=== PATIENT | male | born 1955 | race African-American/Black ===

== ENCOUNTER 2020-03-03 08:21 | Emergency (ER) | payer MEDICARE, MEDICAID ==
[~2020-03-03] VITALS: Ht 170.2 cm; Wt 70.0 kg
--- NOTE | 2020-03-03 08:48 | NUR ---
FIRST CONTACT WITH PT. PT STATED "I'M HAVING SUICIDAL & HOMOCIDAL THOUGHTS, I'M REALLY DEPRESSED, PLAN TO OD/HURT PEOPLE WHO HAVE BEEN HURTING ME", HX SA (OD) ABOUT 6 MONTHS AGO & BIPOLAR, STOPPED TAKING PSYCH MEDS LAST WK. PT'S AOX4. RESPS EVEN AND UNLABORED. PA AT BEDSIDE TO EVALUATE AT THIS TIME.
--- NOTE | 2020-03-03 08:49 | NUR ---
PT IS NOT ABLE TO PROVIDE URINE SAMPLE AT THIS TIME. PT STATED "I JUST PEED RIGHT BEFORE"
--- NOTE | 2020-03-03 08:51 | NUR ---
DIET TRAY ORDERED AT THIS TIME.
--- NOTE | 2020-03-03 08:56 | NUR ---
HOSPITAL SOCKS GIVEN PER REQUEST. SITTER REQUESTING AT THIS TIME.
[2020-03-03 09:12] LABS: ANION GAP 7 mmol/L (5-15); CALCIUM 9.2 mg/dL (8.5-10.1); CHLORIDE 101 mmol/L (98-107)
[2020-03-03 09:15] LABS: ALANINE AMINOTRANSFERASE 31 U/L (12-78); ALKALINE PHOSPHATASE 109 U/L (45-117); BILIRUBIN,TOTAL 1.7 mg/dL (0.2-1.0); CREATININE 0.91 mg/dL (0.7-1.3); TOTAL PROTEIN 8.3 g/dL (6.4-8.2)
[2020-03-03 09:18] LABS: MEAN CORPUSCULAR HEMOGLOBIN 30.5 pg (27.5-34.5); MEAN CORPUSCULAR HGB CONC 32.9 g/dL (33.2-36.2); MEAN PLATELET VOLUME 8.2 fL (7.4-10.4); PLATELET COUNT 269 x10^3/uL (130-400); RED BLOOD COUNT 4.66 x10^6/uL (4.38-5.82)
--- NOTE | 2020-03-03 09:19 | NUR ---
ONE BELONGING BAG PUT INTO THE LOCKER.
[2020-03-03 09:21] LABS: SALICYLATE LEVEL < 1.7 mg/dL (2.8-20.0)
--- NOTE | 2020-03-03 09:25 | NUR ---
DIET TRAY PROVIDED AT THIS TIME. URINE CUP IN ROOM
[2020-03-03 09:45] LABS: BASOPHILS # (AUTO) 0.02 x10^3/uL (0-0.1); BASOPHILS % (AUTO) 0 % (0-1); EOSINOPHILS # (AUTO) 0.25 x10^3/uL (0-0.4); EOSINOPHILS % (AUTO) 4 % (1-7); LYMPHOCYTES % (AUTO) 22 % (22-44); MD SCAN; MONOCYTES # (AUTO) 1.06 x10^3/uL (0.2-0.8); MONOCYTES % (AUTO) 18 % (2-9); NEUTROPHILS # (AUTO) 3.32 x10^3/uL (1.8-6.8); NEUTROPHILS % (AUTO) 56 % (42-75)
--- NOTE | 2020-03-03 10:17 | NUR ---
PT AMB TO BR AND BACK TO ROOM WITH STEADY GAIT. PT PROVIDED URINE SAMPLE AND UA SENT.
[2020-03-03 10:35] LABS: AMPHETAMINE SCREEN, URINE Positive (Negative); BARBITURATE SCREEN, URINE Negative (Negative); BENZODIAZEPINE SCREEN, URINE Negative (Negative); CANNABINOID SCREEN, URINE Negative (Negative); COCAINE SCREEN, URINE Negative (Negative); METHADONE SCREEN, URINE Negative (Negative); OPIATE SCREEN, URINE Negative (Negative)
--- NOTE | 2020-03-03 10:57 | NUR ---
AWAITING LINER CHECKER PSYCH EVAL AT THIS TIME
--- NOTE | 2020-03-03 11:03 | NUR ---
DIET TRAY ORDERED AT THIS TIME.
--- NOTE | 2020-03-03 11:45 | NUR ---
Harry gray in ED - 03/03/20 at 1145 by MARS RECREATION DIRECTOR PSYCH AT BEDSIDE TO RE-EVALUATE AT THIS TIME.
--- NOTE | 2020-03-03 11:46 | NUR ---
PUBLIC HEALTH WORKER PSYCH AT BEDSIDE TO EVALUATE AT THIS TIME.
--- NOTE | 2020-03-03 12:20 | NUR ---
MEAL TRAY PROVIDED AT THIS TIME.
--- NOTE | 2020-03-03 12:20 | NUR ---
ABDIEL REQUESTING AGAIN AT THIS TIME D/T LEGAL HOLD BY ELECTRICAL TEST TECHNICIAN PSYCH.
--- NOTE | 2020-03-03 12:28 | NUR ---
SITTER IS HERE. SITTER MONITORING FROM [facility] SAFETY.
--- NOTE | 2020-03-03 13:05 | NUR ---
TASK RN NOTE: PT LAYING ON SIDE IN BED, LIGHTS DIMMED FOR PT COMFORT. SITTER OUTSIDE OF ROOM FOR DIRECT OBSERVATION AND Q15 MIN SAFETY CHECKS.
--- NOTE | 2020-03-03 13:10 | NUR ---
TASK RN NOTE: REQUEST SENT TO PHARMACY FOR PO MEDS ON EMAR.
[2020-03-03] MEDS ORDERED: LORazepam 0.5MG TABLET ONE (13:18)
[2020-03-03] MEDS: DULOXETINE 30 MG CAPSULE.DR PO SCH (13:30)
[2020-03-03] MEDS: LURASIDONE 20 MG TABLET PO SCH (13:30)
[2020-03-03] MEDS ORDERED: LORazepam 0.5MG TABLET PO ONE (13:30)
--- NOTE | 2020-03-03 13:41 | NUR ---
PT MEDICATED PER EMAR. PT TOLERATED WELL. PT'S AOX4. RESPS EVEN AND UNLABORED. SITTER MONITORING FROM [facility] FOR SAFETY.
--- NOTE | 2020-03-03 14:40 | NUR ---
PT MOVED TO ROOM 2 WITH STEADY GAIT. SNACKS PROVIDED PER REQUEST AT THIS TIME.
--- NOTE | 2020-03-03 15:21 | NUR ---
DENIED BY [facility]. FAXED TO [facility] [place], [facility] AND [facility]
--- NOTE | 2020-03-03 15:40 | NUR ---
PT RESTING IN BED. RESPS EVEN AND UNLABORED. SITTER MONITORING FROM [facility] FOR SAFETY. ROOM SECURE.
--- NOTE | 2020-03-03 16:36 | NUR ---
PT RESTING IN BED. RESPS EVEN AND UNLABORED. SITTER MONITORING FROM [facility] FOR SAFETY. ROOM SECURE.
--- NOTE | 2020-03-03 17:04 | NUR ---
DIET TRAY ORDERED AT THIS TIME.
--- NOTE | 2020-03-03 18:03 | NUR ---
DIET TRAY PROVIDED AT THIS TIME.
--- NOTE | 2020-03-03 18:53 | NUR ---
REPORT GIVEN TO NILSA PATEL.
--- NOTE | 2020-03-03 18:55 | NUR ---
REPORT FROM KINGSTON PATEL, SAFETY ROOM PRECAUTIONS IN PLACE, SITTER AT DOOR FOR SAFETY MONITORING.
--- NOTE | 2020-03-03 19:40 | NUR ---
PT UP TO BATHROOM, SITTER CONTINUES TO MONITOR FOR SAFETY.
--- NOTE | 2020-03-03 20:31 | NUR ---
PT RESTING ON GURNEY WATCHING TV. SITTER AT DOOR FOR SAFETY WATCH.
--- NOTE | 2020-03-03 21:24 | NUR ---
SLEEPING INTERMITTENTLY, SAFETY PRECAUTIONS IN PLACE. SITTER AT DOOR FOR SAFETY.
--- NOTE | 2020-03-04 00:09 | NUR ---
PT SLEEPING IN NO ACUTE DISTRESS, EVEN AND UNLABORED RESPIRATIONS. SAFETY PRECAUTIONS IN PLACE. SITTER AT DOOR ENTRY.
--- NOTE | 2020-03-04 01:56 | NUR ---
PT REQUESTING MULTIPLE SNACKS, RN EDUCATED PT ON NUTRITION, PROVIDED APPLE JUICE TO PT. SITTER CONTINUES TO MONITOR FOR SAFETY.
--- NOTE | 2020-03-04 03:06 | NUR ---
PT IS MORE RESTLESS, REQUESTING ATIVAN. WILL UPDATE ERP.
[2020-03-04] MEDS ORDERED: LORazepam 0.5MG TABLET ONE (03:09)
[2020-03-04] MEDS ORDERED: LORazepam 0.5MG TABLET PO ONE (03:30)
--- NOTE | 2020-03-04 04:08 | NUR ---
PT AWAKE WATCHING TV, REQUESTING MULTIPLE SNACKS.
--- NOTE | 2020-03-04 06:51 | NUR ---
report received from huong perkins.
--- NOTE | 2020-03-04 06:51 | NUR ---
REPORT GIVEN TO KINGSTON PATEL.
--- NOTE | 2020-03-04 08:02 | NUR ---
diet tray provided at this time.
--- NOTE | 2020-03-04 08:10 | NUR ---
pt c/o diet tray. pt stated "it's cold." this rn ordered one more diet tray at this time.
--- NOTE | 2020-03-04 08:44 | NUR ---
medication ordered from pharmacy at this time.
--- NOTE | 2020-03-04 08:45 | NUR ---
new diet tray provided at this time.
--- NOTE | 2020-03-04 08:56 | NUR ---
REPORT FROM KINGSTON PATEL.
[2020-03-04] MEDS: LURASIDONE 20 MG TABLET PO SCH (09:00)
[2020-03-04] MEDS: DULOXETINE 30 MG CAPSULE.DR PO SCH (09:00)
--- NOTE | 2020-03-04 09:01 | NUR ---
report given to roque perkins.
--- NOTE | 2020-03-04 09:18 | NUR ---
PT C/O SI/HI. NO PHYSICAL COMPLAINTS. PHYSICAL ASSESSMENT UNREMARKABLE. GIVEN WATER. SITTER IN PLACE. COOPERATIVE.
[2020-03-04 09:19] VITALS: BP 115/73
--- NOTE | 2020-03-04 11:03 | NUR ---
pt yelling at staff bc he wants ice cream. diet tray/ice cream ordered. as
[2020-03-04] MEDS ORDERED: LORazepam 1MG TABLET PO PRN (11:30)
--- NOTE | 2020-03-04 11:33 | NUR ---
PT IRATE D/T LACK OF ICE CREAM. CALLED KITCHEN LEFT MESSAGE.
--- NOTE | 2020-03-04 11:48 | NUR ---
pt told senior staff psychologist he just needed a safe place to stay and is not suicidal. tbdc. given belongings and fresh socks. gait steady to shower. as
--- NOTE | 2020-03-04 12:12 | NUR ---
pt refused tray and meds. discharged w/ all belongings. to dc window. given [facility]/psych list. as
== END 2020-03-04 12:14 | disposition home or self-care (01) ==
LOC: ED 09:18
DX: R45.851 Suicidal ideations (principal); F32.9 Major depressive disorder, single episode, unspecified; J44.9 Chronic obstructive pulmonary disease, unspecified; Z85.038 Personal history of other malignant neoplasm of large intestine
CPT/HCPCS: 36415; 80053; 80307; 85025; 99284

== ENCOUNTER 2020-03-05 03:39 | Emergency (ER) | payer MEDICARE, MEDICAID ==
[~2020-03-05] VITALS: Ht 172.7 cm; Wt 72.0 kg
[2020-03-05] MEDS ORDERED: SODIUM CHLORIDE FLUSH 10ML SYR IVF ONE (04:00)
--- NOTE | 2020-03-05 04:02 | NUR ---
PT STATES HE HAS STERNAL CHEST PAIN, CALLED [facility], AND ALSO CLAIMS SI. PT PLAN IS TO OVERDOSE ON PAIN MEDS, THAT HE DOES NOT HAVE. PT IN A ROOM WITHIN DIRECT LINE OF SITE OF NURSES STATION. NO ACUTE DISRESS.
[2020-03-05 04:41] LABS: BASOPHILS # (AUTO) 0.03 x10^3/uL (0-0.1); BASOPHILS % (AUTO) 0 % (0-1); EOSINOPHILS % (AUTO) 3 % (1-7); LYMPHOCYTES # (AUTO) 2.05 x10^3/uL (1-3.4); LYMPHOCYTES % (AUTO) 26 % (22-44); MD NO; MEAN CORPUSCULAR HEMOGLOBIN 30.6 pg (27.5-34.5); MEAN CORPUSCULAR HGB CONC 32.5 g/dL (33.2-36.2); MEAN PLATELET VOLUME 8.5 fL (7.4-10.4); MONOCYTES # (AUTO) 0.74 x10^3/uL (0.2-0.8); MONOCYTES % (AUTO) 9 % (2-9); NEUTROPHILS # (AUTO) 4.89 x10^3/uL (1.8-6.8); NEUTROPHILS % (AUTO) 62 % (42-75); PLATELET COUNT 256 x10^3/uL (130-400); RED BLOOD COUNT 4.51 x10^6/uL (4.38-5.82); RED CELL DISTRIBUTION WIDTH 14.6 % (9.4-14.8)
[2020-03-05 04:43] LABS: ALBUMIN 4.1 g/dL (3.4-5.0); ANION GAP 5 mmol/L (5-15); CALCIUM 9.3 mg/dL (8.5-10.1); CHLORIDE 102 mmol/L (98-107)
[2020-03-05 04:47] LABS: ALANINE AMINOTRANSFERASE 32 U/L (12-78); CREATININE 0.93 mg/dL (0.7-1.3); TOTAL PROTEIN 8.6 g/dL (6.4-8.2); TROPONIN I < 0.015 ng/mL (0.000-0.045)
[2020-03-05 04:50] LABS: AMPHETAMINE SCREEN, URINE Positive (Negative); BARBITURATE SCREEN, URINE Negative (Negative); BENZODIAZEPINE SCREEN, URINE Negative (Negative); CANNABINOID SCREEN, URINE Negative (Negative); COCAINE SCREEN, URINE Negative (Negative); METHADONE SCREEN, URINE Negative (Negative); OPIATE SCREEN, URINE Negative (Negative)
[2020-03-05 04:52] LABS: ALKALINE PHOSPHATASE 111 U/L (45-117); T4 (THYROXINE) 9.5 mcg/dL (4.5-12.1)
[2020-03-05 04:53] LABS: SALICYLATE LEVEL < 1.7 mg/dL (2.8-20.0)
--- NOTE | 2020-03-05 05:32 | NUR ---
PT RESTING ON GURNEY. RESP EVEN AND UNLABORED. NO DISTRESS. VSS.
--- NOTE | 2020-03-05 06:59 | NUR ---
REPORT RECEIVED FROM YSED PATEL.
[2020-03-05 07:58] VITALS: BP 135/92
--- NOTE | 2020-03-05 07:58 | NUR ---
PT [place]EPING IN [place]. RESPS EVEN AND UNLABORED. PT IN A ROOM WITHIN DIRECT LINE OF SITE OF NURSES STATION.
--- NOTE | 2020-03-05 09:00 | NUR ---
PT IN [facility] AND STATED"I NEED TO TALK TO MY DOCTOR" EDMD AT BEDSIDE AT THIS TIME.
--- NOTE | 2020-03-05 10:05 | NUR ---
PT SITTING ON [place]. RESPS EVEN AND UNLABORED. MADYSON.
--- NOTE | 2020-03-05 10:12 | NUR ---
PT AMB TO BR AND BACK TO ROOM WITH STEADY GAIT AT THIS TIME.
--- NOTE | 2020-03-05 11:00 | NUR ---
PT SITTING IN GURNEY, DRINKING WATER AT THIS TIME. RESPS EVEN AND UNLABORED. PT IN A ROOM WITHIN DIRECT LINE OF SITE OF NURSES STATION.
--- NOTE | 2020-03-05 11:11 | NUR ---
PT AMB TO EXIT WITH STEADY GAIT.
== END 2020-03-05 11:11 | disposition home or self-care (01) ==
LOC: ED 08:44
DX: R07.2 Precordial pain (principal); Z72.9 Problem related to lifestyle, unspecified; I10 Essential (primary) hypertension; J44.9 Chronic obstructive pulmonary disease, unspecified; R94.31 Abnormal electrocardiogram [ECG] [EKG]; F17.200 Nicotine dependence, unspecified, uncomplicated; Z86.73 Personal history of transient ischemic attack (TIA), and cerebral infarction without residual deficits
CPT/HCPCS: 36415; 71045; 80053; 80307; 83880; 84436; 84443; 84484; 85025; 93005; 99285